=== PATIENT | male | born 1965 | race Caucasian/White ===

== ENCOUNTER 2019-02-04 19:52 | Emergency (ER) | payer OTHER ==
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
[2019-02-04] MEDS ORDERED: IBUPROFEN 600 MG TABLET PO ONE (21:40)
--- NOTE | 2019-02-04 21:56 | RADIOLOGY REPORT (SQ) ---
US LOWER EXTREMITY VEINS EXAM DATE: 02/04/2019 8:33 PM [employer] HISTORY: Leg pain and swelling. COMPARISON: None. TECHNIQUE: Grayscale, color Doppler, and spectral Doppler images of the right lower extremity were performed. FINDINGS: The common femoral, superficial femoral and popliteal veins are patent and compressible. Normal augmentation and color Doppler blood flow in the aforementioned veins. The visualized calf veins are also patent. IMPRESSION: No evidence of deep venous thrombosis in the right lower extremity.
--- NOTE | 2019-02-04 22:19 | RADIOLOGY REPORT (SQ) ---
EXAM DESCRIPTION: XR FEMUR 2 VIEWS COMPLETED DATE/TME: 02/04/2019 21:39 CLINICAL HISTORY: 53 years, Male, injury COMPARISON: None. NUMBER OF VIEWS: Four views were obtained TECHNIQUE: Frontal and oblique radiographs were acquired LIMITATIONS: None. FINDINGS: Visualized osseous structures are normal in appearance. Joint spaces are well-maintained. No acute fracture or dislocation is evident. IMPRESSION: No definite acute osseous anomaly. copyright 2010 [employer]- All Rights Reserved
[2019-02-04 23:12] VITALS: BP 144/87
== END 2019-02-04 23:10 | disposition home or self-care (01) ==
LOC: ER 19:52
DX: S70.11XA Contusion of right thigh, initial encounter (principal); W50.0XXA Accidental hit or strike by another person, initial encounter; E11.9 Type 2 diabetes mellitus without complications; I10 Essential (primary) hypertension; Z88.0 Allergy status to penicillin; Z87.891 Personal history of nicotine dependence; M79.89 Other specified soft tissue disorders
CPT/HCPCS: 93971; 99284

== ENCOUNTER 2019-05-31 14:09 | Emergency (ER) | payer OTHER ==
[2019-05-31] MEDS ORDERED: NORMAL SALINE 1000 ML 1,000 ML IV PRN (14:21)
--- NOTE | 2019-05-31 14:23 | ER Document Report ---
ED Medical Screen (RME) - General Chief Complaint: Shortness Of Breath Stated Complaint: SHORTNESS OF BREATH Time Seen by Provider: 05/31/19 14:14 Primary Care Provider: MIRACLE BAIRES MD [Primary Care Provider] - Follow up as needed Information source: Patient TRAVEL OUTSIDE OF THE [place] IN LAST 30 DAYS: No - HPI Onset: Other - This is a 53-year-old male who presented to the emergency room today stating he has had cough congestion left-sided chest pain intermittently over the course of a week the chest pains got worse over the last 24 hours and now he is getting dizzy as he ambulates and when he coughs. - Related Data Allergies/Adverse Reactions: Penicillins Allergy (Verified 02/04/19 20:27) Past Medical History - Past Medical History Cardiac Medical History: Reports: Hx Heart Attack, Hx Hypercholesterolemia, Hx Hypertension Past Surgical History: Reports: Hx Appendectomy - Immunizations Hx Diphtheria, Pertussis, Tetanus Vaccination: No Physical Exam - Cardiovascular Rhythm: Regular Heart sounds: Normal auscultation Murmur: No Doctor's Discharge - Discharge Referrals: MIRACLE BAIRES MD [Primary Care Provider] - Follow up as needed
[2019-05-31 15:28] LABS: ABSOLUTE LYMPHOCYTES (AUTO) 1.4 10^3/uL (0.5-4.7); ABSOLUTE MONOCYTES (AUTO) 1.1 10^3/uL (0.1-1.4); ABSOLUTE NEUT (AUTO) 10.6 10^3/uL (1.7-8.2); BASOPHILS % (AUTO) 0.3 % (0-2); EOSINOPHILS % (AUTO) 0.2 % (0-6); HEMATOCRIT 39.4 % (37.9-51.0); HEMOGLOBIN 13.8 g/dL (13.5-17.0); LYMPHOCYTES % (AUTO) 10.3 % (13-45); MEAN CORPUSCULAR HEMOGLOBIN 30.6 pg (27.0-33.4); MEAN CORPUSCULAR VOLUME 88 fl (80-97); MONOCYTES % (AUTO) 8.6 % (3-13); PLATELET COUNT 259 10^3/uL (150-450); RED CELL DISTRIBUTION WIDTH 12.6 % (11.5-14.0); SEGMENTED NEUTROPHILS % (AUTO) 80.6 % (42-78); TOTAL CELLS COUNTED % (AUTO) 100 %; WHITE BLOOD COUNT 13.2 10^3/uL (4.0-10.5)
[2019-05-31 15:35] LABS: ALBUMIN 4.2 g/dL (3.5-5.0); ALKALINE PHOSPHATASE 80 U/L (38-126); ANION GAP 9 (5-19); ASPARTATE AMINO TRANSFERASE 26 U/L (17-59); BILIRUBIN,DIRECT 0.2 mg/dL (0.0-0.4); BILIRUBIN,TOTAL 1.7 mg/dL (0.2-1.3); BLOOD UREA NITROGEN 19 mg/dL (7-20); CALCIUM 9.3 mg/dL (8.4-10.2); CARBON DIOXIDE 26 mmol/L (22-30); CHLORIDE 100 mmol/L (98-107); GLUCOSE 212 mg/dL (75-110); POTASSIUM 4.4 mmol/L (3.6-5.0); TOTAL PROTEIN 7.4 g/dL (6.3-8.2)
[2019-05-31 15:56] LABS: CREATINE KINASE MB 0.78 ng/mL (<4.55); TROPONIN I < 0.012 ng/mL
[2019-05-31 16:18] LABS: APPEARANCE,URINE CLEAR; BILIRUBIN,URINE NEGATIVE (NEGATIVE); COLOR,URINE YELLOW; GLUCOSE, URINE 150 mg/dL (NEGATIVE); KETONES,URINE NEGATIVE (NEGATIVE); LEUKOCYTE ESTERASE,URINE NEGATIVE (NEGATIVE); NITRITE,URINE NEGATIVE (NEGATIVE); PROTEIN,URINE NEGATIVE (NEGATIVE); URINE SPECIFIC GRAVITY 1.027; UROBILINOGEN,URINE NEGATIVE mg/dL (<2.0)
[2019-05-31] MEDS ORDERED: METHYLPREDNISOLONE INJ 125 MG/2 ML SDV IV ONE (16:41)
[2019-05-31] MEDS ORDERED: IPRATROPIUM/ALBUTEROL 0.5-2.5 MG/3 ML AMPUL NEB ONE (16:41)
--- NOTE | 2019-05-31 16:52 | ER Document Report ---
ED General - General Chief Complaint: Chest Pain Stated Complaint: SHORTNESS OF BREATH Time Seen by Provider: 05/31/19 14:14 Primary Care Provider: MIRACLE BAIRES MD [NO LOCAL MD] - Follow up as needed Mode of Arrival: Ambulatory Information source: Patient, Relative Notes: Patient is a 53-year-old male presenting to the emergency department chief complaint of shortness of breath and cough as well as congestion. Patient states it is all been for about the past week. He says it is worse the past couple of days. Patient also reports intermittent left-sided chest pain. Patient denies any tobacco abuse no travel history no obvious sick contacts. Patient denies nausea vomiting diarrhea. He states he has had a mild subjective fever at time of presentation to the ER patient had a fever of 99.5. TRAVEL OUTSIDE OF THE [place] IN LAST 30 DAYS: No - Related Data Allergies/Adverse Reactions: Penicillins Allergy (Verified 05/31/19 14:23) Past Medical History - General Information source: Patient - Social History Smoking Status: Never Smoker Chew tobacco use (# tins/day): No Frequency of alcohol use: None Drug Abuse: None Lives with: Spouse/Significant other Family History: Reviewed & Not Pertinent Patient has suicidal ideation: No Patient has homicidal ideation: No - Past Medical History Cardiac Medical History: Reports: Hx Heart Attack, Hx Hypercholesterolemia, Hx Hypertension Past Surgical History: Reports: Hx Appendectomy - Immunizations Hx Diphtheria, Pertussis, Tetanus Vaccination: No Review of Systems - Review of Systems Notes: REVIEW OF SYSTEMS: CONSTITUTIONAL : Denies fever, chills, or sweats. Denies recent illness. EENT: Denies eye, ear, throat, or mouth pain or symptoms. Denies nasal or sinus congestion. CARDIOVASCULAR: Per HPI RESPIRATORY: Per HPI GASTROINTESTINAL: Denies abdominal pain. Denies nausea, vomiting, or diarrhea. Denies constipation. GENITOURINARY: Denies difficulty urinating, painful urination, burning, frequency, or blood in urine. MUSCULOSKELETAL: Denies neck or back pain or joint pain or swelling. SKIN: Denies rash or skin lesions. HEMATOLOGIC : Denies easy bruising or bleeding. NEUROLOGICAL: Denies altered mental status or loss of consciousness. Denies headache. Denies weakness or paralysis or loss of use of either side. Denies problems with gait or speech. Denies sensory or motor loss. PSYCHIATRIC: Denies suicidal or homicidal ideations 10 Systems are negative unless otherwise specified above Physical Exam - Vital signs Vitals: Temp Pulse Resp BP Pulse Ox 99.7 F 102 H 19 154/92 H 96 05/31/19 14:21 05/31/19 14:21 05/31/19 14:21 05/31/19 14:21 05/31/19 14:21 - Notes Notes: PHYSICAL EXAMINATION: GENERAL: Well-appearing, well-nourished and in no acute distress. HEAD: Atraumatic, normocephalic. EYES: Pupils equal round and reactive to light, extraocular movements intact, sclera anicteric, conjunctiva are normal. ENT: nares patent, oropharynx clear without erythema or exudates to the tonsillar regions. Moist mucous membranes. NECK: Normal range of motion, supple without lymphadenopathy, no appreciable JVD LUNGS: Lungs have scattered rales but deep inspiration does elicit a cough response. HEART: Regular rate and rhythm without murmurs ABDOMEN: Soft, nontender, normal bowel sounds. No guarding, no rebound. No masses appreciated. EXTREMITIES: Active full range of motion, no pitting or edema. No cyanosis. 2+ pulses x4 NEUROLOGICAL: No focal neurological deficits. Moves all extremities spontaneously and on command. SKIN: Warm, Dry, and intact. Normal turgor, no rashes or lesions noted. Course - Re-evaluation Re-evalutation: 05/31/19 16:51 Lab work EKG chest x-ray have been ordered. Patient will be given DuoNeb breathing treatment Solu-Medrol 125 mg IV and will be reassessed. 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 The patient has remained stable. I do not believe that the chest pain is secondary to a cardiac event the patient has had 2 completely negative troponins however the patient has been found to have infiltrate and pleural effusion on the left side. Patient is given initial dose of Levaquin in the emergency department given a albuterol MDI inhaler for at home and will be prescribed Levaquin for the next 7 days and recommend to follow-up with family physician or return to the emergency department for worsening symptoms. Patient is agreeable with care plan and discharged home in stable condition. - Vital Signs Vital signs: Temp Pulse Resp BP Pulse Ox 99.7 F 102 H 20 130/91 H 93 05/31/19 14:21 05/31/19 14:21 05/31/19 17:31 05/31/19 17:31 05/31/19 17:31 - Laboratory Result Diagrams: 05/31/19 14:32 05/31/19 14:32 Laboratory results interpreted by me: 05/31/19 05/31/19 05/31/19 14:32 14:32 14:32 WBC 13.2 H Lymph % (Auto) 10.3 L Absolute Neuts (auto) 10.6 H Seg Neutrophils % 80.6 H Sodium 135.3 L Glucose 212 H Total Bilirubin 1.7 H Urine Glucose (UA) 150 H - Diagnostic Test Radiology reviewed: Reports reviewed - EKG Interpretation by Me Additional EKG results interpreted by me: 05/31/19 16:52 EKG demonstrates sinus rhythm 99 bpm there is no ST elevation no axis deviation no ectopy and no old EKG for comparison. Discharge - Discharge Clinical Impression: Cough, Pleural effusion Pneumonia Qualifiers: Pneumonia type: due to unspecified organism Laterality: unspecified laterality Lung location: lower lobe of lung Qualified Code(s): J18.9 - Pneumonia, unspecified organism Condition: Stable Disposition: HOME, SELF-CARE Instructions: Chest Pain of Unclear Cause ([facility]) Additional Instructions: PNEUMONIA: Your examination indicates that you have pneumonia. This is an infection of the lung tissue, usually caused by bacteria or a virus. Symptoms include cough, fever, shaking chills, chest pain, shortness of breath, and coughing up bloody sputum. Treatment for bacterial pneumonia includes rest, antibiotics for 10 to 14 days, increasing your clear liquid intake, a cool mist humidifier at your be dside, and fever medication. Often, a repeat chest X-ray is performed in a few weeks--even if you feel better--to ascertain whether the infection has completely resolved and no underlying lung problem is present. You should call the physician if you develop persistent vomiting, high fever that does not respond to fever medication, increasing shortness of breath, confusion, or lethargy. Also, failure to improve within two to three days is an indication for re-examination. ANTIBIOTIC INJECTION: You have been given an antibiotic injection. Sometimes the injection must be combined with antibiotic pills. For some infections, the shot provides all the antibiotic that's needed. Common side effects of antibiotics include nausea, intestinal cramping, or diarrhea. These are very unusual following a shot. Women may develop vaginal yeast infections, and babies can get yeast (thrush) in the mouth following the use of antibiotics. Contact your physician if you develop significant side effects from this medication. Allergy to this antibiotic can result in hives, wheezing, faintness, or itching. If symptoms of allergy occur, call the doctor at once. ANTIBIOTIC THERAPY: You have been given an antibiotic prescription. It's important that you take all the medication, unless instructed otherwise by your physician. Failure to complete the entire course can result in relapse of your condition. Common side effects of antibiotics include nausea, intestinal cramping, or diarrhea. Women may develop vaginal yeast infections, and babies can get yeast (thrush) in the mouth following the use of antibiotics. Contact your physician if you develop significant side effects from this medication. Allergy to this antibiotic can result in hives, wheezing, faintness, or itching. If symptoms of allergy occur, stop the medication and call the doctor. LEVOFLOXACIN: You have been given an antibacterial agent, levofloxacin (Levaquin). This medicine is not related to the penicillins, sulfas, cephalosporins, or tetracyclines. It is often given to patients who are allergic to these drugs. It has been chosen for you either because other drugs are not appropriate, or because of the nature of your problem. Levaquin should not be taken with antacids, as these can decrease its effectiveness. It can be taken without regard to meals. LEVAQUIN SHOULD NOT BE TAKEN BY CHILDREN, NURSING WOMEN, OR WOMEN. Although Levaquin is usually well-tolerated, common side effects can include nausea and diarrhea. Contact your doctor if you experience any unusual symptoms while on this medication, such as joint pain or swelling, shortness of breath, wheezing, faintness, or hives. USE OF ACETAMINOPHEN (Tylenol): Acetaminophen may be taken for pain relief or fever control. It's much safer than aspirin, offering a wider range of "safe" dosages. It is safe during . Some brand names are Tylenol, Panadol, Datril, Anacin 3, Tempra, and Liquiprin. Acetaminophen can be repeated every four hours. The following are maximum recommended dosages: WEIGHT Dose Drops Elixir Chewable (80mg) (LBS.) drprs=droppers tsp=teaspoon 6 40 mg 0.4 ml (1/2) 6-11 80 mg 0.8 ml (full) tsp 1 tab 12-16 120 mg 1 1/2 drprs 3/4 tsp 1 1/2 tabs 17-23 160 mg 2 drprs 1 tsp 2 tabs 24-30 240 mg 3 drprs 1 1/2 tsp 3 tabs 30-35 320 mg 2 tsp 4 tabs 36-41 360 mg 2 1/4 tsp 4 1/2 tabs 42-47 400 mg 2 1/2 tsp 5 tabs 48-53 480 mg 3 tsp 6 tabs 54-59 520 mg 3 1/4 tsp 6 1/2 tabs 60-64 560 mg 3 1/2 tsp 7 tabs 65-70 600 mg 3 3/4 tsp 7 1/2 tabs 71-76 640 mg 4 tsp 8 tabs 77-82 720 mg 4 1/2 tsp 9 tabs 83-88 800 mg 5 tsp 10 tabs >89 pounds or adults 650 mg to 900 mg Acetaminophen can be repeated every four hours. Maximum dose not to exceed 4000 mg a day. These maximum recommended dosages are slightly higher than the dosages written on the product container, but these dosages are very safe and below the toxic dosage for acetaminophen. FOLLOW-UP CARE: If you have been referred to a physician for follow-up care, call the physicians office for an appointment as you were instructed or within the next two days. If you experience worsening or a significant change in your symptoms, notify the physician immediately or return to the Emergency Department at any time for re-evaluation. Prescriptions: Levofloxacin [Levaquin 750 mg Tablet] 750 mg PO DAILY #10 tablet Forms: Return to Work Referrals: MIRACLE BAIRES MD [NO LOCAL MD] - Follow up as needed
--- NOTE | 2019-05-31 17:37 | RADIOLOGY REPORT (SQ) ---
EXAM DESCRIPTION: CHEST SINGLE VIEW COMPLETED DATE/TIME: 05/31/2019 5:15 pm REASON FOR STUDY: sob COMPARISON: Chest radiographs 08/13/2013 EXAM PARAMETERS: NUMBER OF VIEWS: One view. TECHNIQUE: Single frontal radiographic view of the chest acquired. RADIATION DOSE: NA LIMITATIONS: None. FINDINGS: LUNGS AND PLEURA: Patchy left lower lobe airspace opacities. Mild blunting of the left co stophrenic angle. No pneumothorax. MEDIASTINUM AND HILAR STRUCTURES: No masses. Contour normal. HEART AND VASCULAR STRUCTURES: Heart normal in size. Normal vasculature. BONES: No acute findings. HARDWARE: None in the chest. OTHER: No other significant finding. IMPRESSION: Patchy left basilar airspace opacities, which may represent pneumonia in the appropriate clinical setting. Possible small left pleural effusion. TECHNICAL DOCUMENTATION: JOB ID: [id number] 2010 [employer]- All Rights Reserved Reading location - IP/workstation name: [email or web address]
[2019-05-31 17:44] LABS: A TYPE INFLUENZA AG NEGATIVE (NEGATIVE); B INFLUENZA AG NEGATIVE (NEGATIVE)
[2019-05-31] MEDS ORDERED: LEVOFLOXACIN 500 MG/D5W RTU 500 MG/100 ML RTUPB IV ONE (18:23)
[2019-05-31] MEDS ORDERED: ALBUTEROL SULFATE HFA (90 MCG/PUFF) 8 GM MDI (1 MDI/ER DISP) IH PRN (19:08)
[2019-05-31 19:33] VITALS: BP 121/82
--- NOTE | 2019-06-02 00:23 | EKG REPORT ---
SEVERITY:- NORMAL ECG - SINUS RHYTHM : Confirmed by: Sheila Potter 02-Jun-2019 00:21:29
--- NOTE | 2019-06-03 14:30 | EKG REPORT ---
SEVERITY:- BORDERLINE ECG - SINUS RHYTHM PROBABLE LEFT ATRIAL ABNORMALITY : Confirmed by: Acacia Morales MD 03-Jun-2019 14:30:35
== END 2019-05-31 19:54 | disposition home or self-care (01) ==
LOC: ER 14:09
DX: J18.9 Pneumonia, unspecified organism (principal); J90 Pleural effusion, not elsewhere classified; R06.02 Shortness of breath; R05 Cough; R07.9 Chest pain, unspecified; I10 Essential (primary) hypertension; I25.2 Old myocardial infarction; Z88.0 Allergy status to penicillin
CPT/HCPCS: 93005; 94640; 99285; 96361; 96375; 96365; 36415; 87040; 82553; 82550; 83690; 85025; 80053; 81001; 84484; 87804; 71045; 93010; J1956; J2930; J7030; J3490; J7620

== ENCOUNTER 2019-06-02 21:46 | Inpatient (IN) | payer OTHER ==
--- NOTE | 2019-06-02 23:07 | ER Document Report ---
ED Medical Screen (RME) - General Chief Complaint: Chest Pain Stated Complaint: CHEST PAINS,SHORTNESS OF BREATH Primary Care Provider: [facility] [Primary Care Provider] - Follow up as needed Notes: Patient is a 53-year-old white male who was seen here recently diagnosed with pneumonia who was started on Levaquin who returns today with a chief complaint of no improvement. States that he feels like despite the antibiotics given here in the ones taking at home he is not getting any better. He complains of pain in the left chest wall and an ongoing shortness of breath. He states that he also has a new symptom of inability to rest. States that he cannot sleep at night he lies in bed wide awake. He states he does not feel jittery but cannot get any rest. He is unsure if this is a side effect of the medications. He was supposed to follow-up with his doctor but states he cannot get in to see him until this coming Sunday. He denies any ongoing fevers or chills. I have treated and performed a rapid initial assessment of this patient. A comprehensive ED assessment and evaluation of the patient, analysis of test results and completion of medical decision making process will be conducted by additional ED providers. PHYSICAL EXAMINATION: GENERAL: Well-appearing, well-nourished and in no acute distress. A&Ox4. Answers questions appropriately. TRAVEL OUTSIDE OF THE [place] IN LAST 30 DAYS: No - Related Data Allergies/Adverse Reactions: Penicillins Allergy (Verified 06/02/19 23:04) Past Medical History - Past Medical History Cardiac Medical History: Reports: Hx Heart Attack, Hx Hypercholesterolemia, Hx Hypertension Past Surgical History: Reports: Hx Appendectomy - Immunizations Hx Diphtheria, Pertussis, Tetanus Vaccination: No Physical Exam - Vital signs Vitals: Temp Pulse Resp BP Pulse Ox 99.1 F 81 20 147/95 H 96 06/02/19 22:28 06/02/19 22:28 06/02/19 22:28 06/02/19 22:28 06/02/19 22:28 Course - Vital Signs Vital signs: Temp Pulse Resp BP Pulse Ox 99.1 F 81 20 147/95 H 96 06/02/19 22:28 06/02/19 22:28 06/02/19 22:28 06/02/19 22:28 06/02/19 22:28 Doctor's Discharge - Discharge [facility]errals: [facility] [Primary Care [facility]] - Follow up as needed
--- NOTE | 2019-06-02 23:34 | RADIOLOGY REPORT (SQ) ---
EXAM DESCRIPTION: XR CHEST 2 VIEWS COMPLETED DATE/TME: 06/02/2019 23:05 CLINICAL HISTORY: 53 years, Male, cp, cough, sob COMPARISON: Prior study from 05/31/2019 NUMBER OF VIEWS: 2 TECHNIQUE: Frontal and lateral radiographs of the chest were acquired LIMITATIONS: None. FINDINGS: Cardiac and mediastinal contours are stable. Visualized is a small left pleural effusion with associated left basilar opacity, unchanged from the prior. No pneumothorax. IMPRESSION: Small left pleural effusion with associated left basilar opacity. Consider atelectasis or pneumonia to include aspiration. Overall, this appears unchanged from the previous study dated 05/31/2019. copyright 2010 [employer]- All Rights Reserved
[2019-06-03 03:33] LABS: ABSOLUTE LYMPHOCYTES (AUTO) 1.3 10^3/uL (0.5-4.7); ABSOLUTE MONOCYTES (AUTO) 0.8 10^3/uL (0.1-1.4); ABSOLUTE NEUT (AUTO) 8.4 10^3/uL (1.7-8.2); BASOPHILS % (AUTO) 0.4 % (0-2); EOSINOPHILS % (AUTO) 0.4 % (0-6); HEMATOCRIT 39.5 % (37.9-51.0); HEMOGLOBIN 13.9 g/dL (13.5-17.0); LYMPHOCYTES % (AUTO) 12.1 % (13-45); MEAN CORPUSCULAR HEMOGLOBIN 30.8 pg (27.0-33.4); MEAN CORPUSCULAR HGB CONC 35.2 g/dL (32.0-36.0); MEAN CORPUSCULAR VOLUME 87 fl (80-97); PLATELET COUNT 284 10^3/uL (150-450); RED BLOOD COUNT 4.52 10^6/uL (4.35-5.55); RED CELL DISTRIBUTION WIDTH 12.4 % (11.5-14.0); SEGMENTED NEUTROPHILS % (AUTO) 79.1 % (42-78); TOTAL CELLS COUNTED % (AUTO) 100 %; WHITE BLOOD COUNT 10.6 10^3/uL (4.0-10.5)
--- NOTE | 2019-06-03 03:45 | ER Document Report ---
ED General - General Information source: Patient TRAVEL OUTSIDE OF THE [place] IN LAST 30 DAYS: No - HPI Onset: Other - over the last several days Onset/Duration: Gradual Quality of pain: Sharp - made worse with deep breaths Severity: Moderate Pain Level: 4 Associated symptoms: Chest pain, Nonproductive cough, Fever, Shortness of breath Exacerbated by: Coughing, Deep breathing, Other - exertion Relieved by: Remaining still Similar symptoms previously: No Recently seen / treated by doctor: Yes - patient was seen in this ER on 05/31/19 and diagnosed with pneumonia <PHILOMENA SHIPLEY - Last Filed: 06/03/19 06:05> <TARIK SCRUGGS - Last Filed: 06/03/19 11:54> - General Chief Complaint: Breathing Difficulty Stated Complaint: CHEST PAINS,SHORTNESS OF BREATH Time Seen by Provider: 06/03/19 03:23 [facility] Provider: [facility] [[facility]] - Follow up as needed - HPI Notes: 53 year old male with a history of HTN, HLD, and DM here for left sided chest pain, cough, low grade fevers, and shortness of breath. The patient was seen in this ER on 05/31/19 and diagnosed with a left sided pneumonia and a small left sided effusion. The patient was given a dose of Levaquin in the ER and he has taken 2 more doses of Levaquin at home without much improvement. The patient denies any recent travel or recent sick contacts. The patient has not had any recent surgeries, prolonged immobilizations, or long car/plane rides. (PHILOMENA SHIPLEY) - Related Data Allergies/Adverse Reactions: Penicillins Allergy (Verified 06/02/19 23:04) Past Medical History - General Information source: Patient - Social History Smoking Status: Never Smoker Frequency of alcohol use: None Drug Abuse: None Lives with: Spouse/Significant other Family History: Reviewed & Not Pertinent Patient has suicidal ideation: No Patient has homicidal ideation: No - Past Medical History Cardiac Medical History: Reports: Hx Heart Attack, Hx Hypercholesterolemia, Hx Hypertension Endocrine Medical History: Reports: Hx Diabetes Mellitus Type 2 Past Surgical History: Reports: Hx Appendectomy - Immunizations Hx Diphtheria, Pertussis, Tetanus Vaccination: No <PHILOMENA SHIPLEY - Last Filed: 06/03/19 06:05> Review of Systems - Review of Systems Constitutional: Fever EENT: No symptoms reported Cardiovascular: Chest pain Respiratory: Cough, Short of breath Gastrointestinal: No symptoms reported Genitourinary: No symptoms reported Male Genitourinary: No symptoms reported Musculoskeletal: No symptoms reported Skin: No symptoms reported Hematologic/Lymphatic: No symptoms reported Neurological/Psychological: No symptoms reported -: Yes All other systems reviewed and negative <PHILOMENA SHIPLEY - Last Filed: 06/03/19 06:05> Physical Exam <PHILOMENA SHIPLEY - Last Filed: 06/03/19 06:05> - Vital signs Vitals: Temp Pulse Resp BP Pulse Ox 99.1 F 81 20 147/95 H 96 06/02/19 22:28 06/02/19 22:28 06/02/19 22:28 06/02/19 22:28 06/02/19 22:28 - Notes Notes: GENERAL: Well-appearing, well-nourished and in no acute distress. HEAD: Atraumatic, normocephalic. EYES: Pupils equal round and reactive to light, extraocular movements intact, sclera anicteric, conjunctiva are normal. ENT: Nares patent, oropharynx clear without exudates. Moist mucous membranes. NECK: Normal range of motion, supple without lymphadenopathy or JVD. LUNGS: Breath sounds clear to auscultation bilaterally and equal. No wheezes rales or rhonchi. Patient has left sided pleuritic chest pain. HEART: Regular rate and rhythm without murmurs, rubs or gallops. ABDOMEN: Soft, nontender, normoactive bowel sounds. No guarding, no rebound. No masses appreciated. EXTREMITIES: Normal range of motion, no pitting or edema. No clubbing or cyanosis. NEUROLOGICAL: Cranial nerves II through XII grossly intact. Normal speech, normal gait. PSYCH: Normal mood, normal affect. SKIN: Warm, Dry, normal turgor, no rashes or lesions noted. (PHILOMENA SHIPLEY) Course - Laboratory Result Diagrams: 06/03/19 03:14 06/03/19 03:14 - Diagnostic Test Radiology reviewed: Image reviewed, Reports reviewed - EKG Interpretation by [facility] EKG shows normal: Sinus rhythm, [place], Intervals, QRS Complexes Rate: Normal Rhythm: NSR When compared to previous EKG there are: No significant change <PHILOMENA SHIPLEY - Last Filed: 06/03/19 06:05> - Laboratory Result Diagrams: 06/03/19 03:14 06/03/19 03:14 <TARIK SCRUGGS - Last Filed: 06/03/19 11:54> - Re-evaluation Re-evalutation: 06/03/19 04:01 The patient has what looks like a persistent left lower lobe infiltrate(s) and an effusion despite having taken 3 doses of Levaquin at this point. Will obtain influenza testing and a CTA Chest to ensure no other cause of symptoms. 06/03/19 04:52 The patient tested negative for Influenza. CTA Chest still pending. 06/03/19 06:05 CTA shows likely continued left sided pneumonia and possible necrotizing pneumonia. Will consult Pulmonary but admission for broad spectrum antibiotics seems likely. Patient is not septic and has normal vital signs. Patient signed out to Dr. Scruggs since since Pulmonary had not called back prior to shift change. ([facility]) - Vital Signs Vital signs: Temp Pulse Resp BP Pulse Ox 98.8 F 81 21 H 153/99 H 95 06/03/19 06:00 06/02/19 22:28 06/03/19 11:01 06/03/19 11:00 06/03/19 11:01 - Laboratory Laboratory results interpreted by me: 06/03/19 06/03/19 03:14 03:14 WBC 10.6 H Lymph % (Auto) 12.1 L Absolute Neuts (auto) 8.4 H Seg Neutrophils % 79.1 H Sodium 135.3 L Glucose 203 H Total Bilirubin 1.5 H Discharge <[facility] - Last Filed: 06/03/19 06:05> - Discharge Admitting Provider: Chris (Hospitalist) Unit Admitted: Medical Floor <TARIK SCRUGGS - Last Filed: 06/03/19 11:54> - Discharge Clinical Impression: Pneumonia Qualifiers: Pneumonia type: due to unspecified organism Laterality: unspecified laterality Lung location: unspecified part of lung Qualified Code(s): J18.9 - Pneumonia, unspecified organism Condition: Stable Disposition: ADMITTED INPATIENT [facility]errals: [facility] [Primary Care [facility]] - Follow up as needed
[2019-06-03 03:51] LABS: ALBUMIN 4.2 g/dL (3.5-5.0); ALKALINE PHOSPHATASE 74 U/L (38-126); ANION GAP 12 (5-19); ASPARTATE AMINO TRANSFERASE 24 U/L (17-59); BILIRUBIN,TOTAL 1.5 mg/dL (0.2-1.3); BLOOD UREA NITROGEN 17 mg/dL (7-20); CALCIUM 9.2 mg/dL (8.4-10.2); CARBON DIOXIDE 23 mmol/L (22-30); CHLORIDE 100 mmol/L (98-107); GLUCOSE 203 mg/dL (75-110); POTASSIUM 4.5 mmol/L (3.6-5.0); TOTAL PROTEIN 7.7 g/dL (6.3-8.2)
[2019-06-03] MEDS ORDERED: ACETAMINOPHEN 325 MG TABLET PO ONE (03:52)
[2019-06-03] MEDS ORDERED: NORMAL SALINE 1000 ML 1,000 ML IV ONE (04:03)
[2019-06-03 04:28] LABS: A TYPE INFLUENZA AG NEGATIVE (NEGATIVE); B INFLUENZA AG NEGATIVE (NEGATIVE)
--- NOTE | 2019-06-03 05:27 | RADIOLOGY REPORT (SQ) ---
EXAM DESCRIPTION: CT CHEST ANGIOGRAPHY WITHOUT THEN WITH IV CONTRAST COMPLETED DATE/TME: 06/03/2019 03:25 CLINICAL HISTORY: C/O SOB. DX'D WITH PNEUMONIA THIS PAST WEEKEND. CREAT 0.64 COMPARISON: None Available. TECHNIQUE: CTA of the chest obtained following the uncomplicated intravenous administration of 100 mL Omnipaque 350. 3-D/MIP reformatted images of the chest available for evaluation. FINDINGS: Chest: Pulmonary arteries: Contrast bolus is suboptimal. No filling defects main, left, right, or lobar pulmonary arteries. Suboptimal evaluation of the segmental and subsegmental pulmonary arterial branches due to respiratory motion artifact. Thyroid:No abnormalities of the visualized thyroid. Great Vessels:Great vessels have normal anatomic configuration. Thoracic Aorta: Atherosclerotic calcification of the thoracic aorta. Bowel Heart: Coronary artery atherosclerosis. No significant pericardial effusion or cardiomegaly. Lymph Nodes: Mildly prominent lymph nodes may be reactive. Esophagus:No abnormalities of the esophagus identified. Other:No additional findings. Lungs: Lingular airspace consolidation with focal region of hypodensity anteriorly measuring 3.5 x 2.1 cm containing small foci of air. Linear left basilar opacities. Minimal right basilar dependent atelectasis. Pleura: Small left pleural effusion. No pneumothorax. Trachea/Airways: No acute abnormalities of the trachea. Bones: Mild degenerative endplate spondylosis. Upper Abdomen:Limited images of the upper abdomen demonstrate no definite abnormalities of visualized portions of the gallbladder, pancreas, spleen, adrenal glands, or kidneys. Diffusely decreased hepatic density. IMPRESSION: 1. No central pulmonary embolus identified. Suboptimal evaluation of the segmental and subsegmental pulmonary arterial branches due to contrast bolus timing. 2. Lingular consolidation compatible with pneumonia. Focal area of hypodensity anteriorly measuring 3.5 cm in greatest axial dimension may represent an area of necrotizing pneumonia versus early abscess formation. 3. Small left pleural effusion. 4. Linear opacity in the left lower lobe may represent atelectasis or extension of lingular pneumonia. 5. Hepatic steatosis. 6. Coronary artery atherosclerosis. This exam was performed according to our departmental dose-optimization program, which includes automated exposure control, adjustment of the mA and/or kV according to patient size and/or use of iterative reconstruction technique.
[2019-06-03] MEDS ORDERED: KETOROLAC TROMETHAMINE INJ/PF 30 MG/1 ML SDV IV ONE (06:12)
--- NOTE | 2019-06-03 12:15 | PDOC CONSULTATION ---
Consultation Consult Date: 06/03/19 Attending physician:: KARLEY MCCOLLUM Provider Consulted: WASHINGTON STONE Consult reason:: Pneumonia History of Present Illness [facility] History of Present Illness: MALACHI CABELLO is a 53 year old male second presentation to the emergency room in the last 72 hours initially he complained of a cough that was nonproductive and radiographs were likewise nondiagnostic he subsequently received Levaquin because his white count was 14. However he continued to feel weak and was coughing and returned and that a CTA which demonstrated a pleural placed consolidation with a small amount of pleural effusion and volume loss. He is a little cough as initially it was productive of some yellowish phlegm he denies any hemoptysis PPD status was negative the dates unknown no history of chronic lung disease as a child or adolescent he denies exposure to passive smoke as a child but he has been exposed his adult life he served in the [employer]. 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 1 dog no recent travel no known sick contacts recently. He denies angina-like chest pain sleeps on 1-3 pillows no PND no nocturnal cough no edema he admits to snoring restless sleep nocturia 2-3 times per night unrestful sleep and excessive daytime somnolence. Is also interesting to note that his reports witnessed apneas. Past Medical History Cardiac Medical History: Reports: Myocardial Infarction, Hyperlipidema, Hypertension EENT Medical History: Reports: None Neurological Medical History: Reports: Migraine Denies: Multiple Sclerosis Endocrine Medical History: Reports: Diabetes Mellitus Type 2 Malignancy Medical History: Reports: None GI Medical History: Denies: Crohn's Disease, Ulcerative Colitis Skin Medical History: Denies: Psoriasis Traumatic Medical History: Denies: Gunshot Wound, Pneumothorax, Traumatic Brain Injury Hematology: Denies: Sickle Cell Disease Infectious Medical History: Denies: HIV Past Surgical History Past Surgical History: Reports: Appendectomy Social History Information Source: Patient, Relative 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 Lives with: Spouse/Significant other Smoking Status: Never Smoker Passive smoke exposure as: Adult Frequency of Alcohol Use: None Hx Recreational Drug Use: No Drugs: None Hx Prescription Drug Abuse: No Do you have pets?: Yes Have you had any respiratory illnesses as a child?: No Have you been exposed to any sick contacts recently?: No Have you had any recent respiratory illnesses?: Yes Have you travelled outside of [place] in the past 12 months?: No Family History Family History: CAD, CVA, DM, Hypertension, Malignancy Parental Family History Reviewed: Yes Children Family History Reviewed: Yes Sibling(s) Family History Reviewed.: Yes Medication/Allergy Home Medications: Ondansetron [Zofran Odt 4 mg Tablet] 1 - 2 tab PO Q4H PRN #15 tab.rapdis 08/13/13 Levofloxacin [Levaquin 750 mg Tablet] 750 mg PO DAILY #10 tablet 05/31/19 Allergies/Adverse Reactions: Penicillins Allergy (Verified 06/02/19 23:04) Review of Systems All systems: reviewed and no additional remarkable complaints except as stated Physical Exam Vital Signs: Temp Pulse Resp BP Pulse Ox 98.8 F 81 21 H 153/99 H 95 06/03/19 06:00 06/02/19 22:28 06/03/19 11:01 06/03/19 11:00 06/03/19 11:01 Intake & Output 06/02/19 06/03/19 06/04/19 06:59 06:59 06:59 Intake Total 1000 Balance 1000 Weight 104.1 kg General appearance: PRESENT: no acute distress, cooperative, disheveled, obese, well-developed, well-nourished Head exam: PRESENT: atraumatic, normocephalic Eye exam: PRESENT: conjunctiva pale, EOMI. ABSENT: nystagmus, periorbital swelling, scleral icterus Mouth exam: PRESENT: dry mucosa, neck supple, tongue midline Neck exam: ABSENT: carotid bruit, JVD, lymphadenopathy, thyromegaly, tracheal deviation, tracheostomy Cardiovascular exam: PRESENT: RRR, +S1, +S2, tachycardia Pulses: PRESENT: normal radial pulses GI/Abdominal exam: PRESENT: soft. ABSENT: distended, guarding, rebound, tenderness Extremities exam: ABSENT: clubbing, joint swelling, pedal edema, tenderness Musculoskeletal exam: PRESENT: ambulatory, normal inspection. ABSENT: deformity, dislocation Neurological exam: PRESENT: alert, awake Psychiatric exam: PRESENT: appropriate affect Skin exam: PRESENT: dry, warm Results Laboratory Results: 06/03/19 03:14 06/03/19 03:14 06/03/19 06/03/19 03:14 03:14 WBC 10.6 H RBC 4.52 Hgb 13.9 Hct 39.5 MCV 87 MCH 30.8 MCHC 35.2 RDW 12.4 Plt Count 284 Seg Neutrophils % 79.1 H Sodium 135.3 L Potassium 4.5 Chloride 100 Carbon Dioxide 23 Anion Gap 12 BUN 17 Creatinine 0.64 Est GFR ( Amer) > 60 Glucose 203 H Calcium 9.2 Total Bilirubin 1.5 H AST 24 Alkaline Phosphatase 74 Total Protein 7.7 Albumin 4.2 06/03/19 06/03/19 03:14 03:14 Troponin I < 0.012 NT-Pro-B Natriuret Pep 100 Impressions: Chest X-Ray 06/02/19 23:05 IMPRESSION: Small left pleural effusion with associated left basilar opacity. Consider atelectasis or pneumonia to include aspiration. Overall, this appears unchanged from the previous study dated 05/31/2019. copyright 2010 [employer]- All Rights Reserved Chest/Abdomen CTA 06/03/19 03:25 IMPRESSION: 1. No central pulmonary embolus identified. Suboptimal evaluation of the segmental and subsegmental pulmonary arterial branches due to contrast bolus timing. 2. Lingular consolidation compatible with pneumonia. Focal area of hypodensity anteriorly measuring 3.5 cm in greatest axial dimension may represent an area of necrotizing pneumonia versus early abscess formation. 3. Small left pleural effusion. 4. Linear opacity in the left lower lobe may represent atelectasis or extension of lingular pneumonia. 5. Hepatic steatosis. 6. Coronary artery atherosclerosis. This exam was performed according to our departmental dose-optimization program, which includes automated exposure control, adjustment of the mA and/or kV according to patient size and/or use of iterative reconstruction technique. Assessment & Plan - Diagnosis (1) Pneumonia Qualifiers: Pneumonia type: due to unspecified organism Laterality: unspecified laterality Lung location: unspecified part of lung Qualified Code(s): J18.9 - Pneumonia, unspecified organism Is this a current diagnosis for this admission?: Yes Plan: foul smelling breath consider cleocin to cover anerobes; vancomycin and continue levoquin suggest chest percussion and postural drainage Izaiah lat and post chest weems;sputum stain and C&S:acetylcystene for mucolytic 1 hr prior to chest phisiotherapy non smoker NIDDM HTN (2) Pleural effusion Is this a current diagnosis for this admission?: Yes Plan: very small per radiology but any increase should be tapped if/when possible (3) Daytime somnolence Is this a current diagnosis for this admission?: Yes Plan: cpap +10 cm h2o in hospitial on discharge sleep study - Time Time Spent with patient: 65 min Time Spent: 50 to 70 Minutes
[2019-06-03] MEDS ORDERED: ACETAMINOPHEN 325 MG TABLET PO PRN (12:19)
[2019-06-03] MEDS ORDERED: GLUCAGON,HUMAN RECOMB 1 MG INJ IM PRN (12:35)
[2019-06-03] MEDS ORDERED: DEXTROSE 40% GEL 15 GM TUBE PO PRN ×2 (12:35)
[2019-06-03] MEDS ORDERED: DEXTROSE 50%-WATER 25 GM/50 ML DISP.SYRIN IV PRN ×2 (12:35)
[2019-06-03] MEDS ORDERED: VANCOMYCIN HCL INJ 1000 MG VIAL IV SCH (12:45)
--- NOTE | 2019-06-03 12:51 | PDOC H&P ---
History of Present Illness Admission Date/PCP: 06/03/19 12:15 [facility] Patient complains of: Chest pain or shortness of breath with cough History of Present Illness: MALACHI CABELLO is a 53 year old male with a history of type 2 diabetes mellitus, hypertension, arthritis of both shoulders, who presents to the hospital complaining of progressive shortness of breath and cough. Patient symptoms began about a week ago and began with chills, nonproductive cough. He began to develop left-sided pleuritic chest pain. He came to the ER and was given Levaquin on Sunday. He states that despite taking the antibiotics on Sunday and Sunday he has not noted any improvement in his cough and right progressive nature of the chest pain and shortness of breath and decided to come back to the ER. Patient denies any travels outside of [place] in the past 1 month. Also has not traveled outside the country anytime recently. Currently denies fever or chills at this time. Denies pain in any large gatherings of people. Only sick contact is somebody from work. Chest pain is only upon deep inhalation. Past Medical History Cardiac Medical History: Reports: Hypertension EENT Medical History: Reports: None Endocrine Medical History: Reports: Diabetes Mellitus Type 2 Malignancy Medical History: Reports: None GI Medical History: Denies: Crohn's Disease, Ulcerative Colitis Skin Medical History: Denies: Psoriasis Traumatic Medical History: Denies: Gunshot Wound, Pneumothorax, Traumatic Brain Injury Hematology: Denies: Sickle Cell Disease Infectious Medical History: Denies: HIV Past Surgical History Past Surgical History: Reports: Appendectomy Social History Lives with: Spouse/Significant other Smoking Status: Never Smoker Frequency of Alcohol Use: None Hx Recreational Drug Use: No Drugs: None Hx Prescription Drug Abuse: No - Advance Directive Resuscitation Status: Full Code Family History Family History: CAD, CVA, DM, Hypertension, Malignancy Parental Family History Reviewed: Yes Children Family History Reviewed: NA Sibling(s) Family History Reviewed.: NA Medication/Allergy Home Medications: Ondansetron [Zofran Odt 4 mg Tablet] 1 - 2 tab PO Q4H PRN #15 tab.rapdis 08/13/13 Levofloxacin [Levaquin 750 mg Tablet] 750 mg PO DAILY #10 tablet 05/31/19 Allergies/Adverse Reactions: Penicillins Allergy (Verified 06/02/19 23:04) Review of Systems Constitutional: PRESENT: chills. ABSENT: anorexia, fever(s) Eyes: ABSENT: visual disturbances Nose, Mouth, and Throat: ABSENT: headache(s), sore throat Cardiovascular: PRESENT: chest pain. ABSENT: orthropnea Respiratory: PRESENT: cough, dyspnea. ABSENT: sputum Gastrointestinal: ABSENT: abdominal pain, diarrhea, nausea, vomiting Genitourinary: ABSENT: dysuria Musculoskeletal: ABSENT: back pain Integumentary: ABSENT: diaphoresis Neurological: ABSENT: confusion, dizziness Hematologic/Lymphatic: ABSENT: easy bleeding Allergic/Immunologic: ABSENT: seasonal rhinorrhea Physical Exam Vital Signs: Temp Pulse Resp BP Pulse Ox 98.8 F 81 21 H 153/99 H 95 06/03/19 06:00 06/02/19 22:28 06/03/19 11:01 06/03/19 11:00 06/03/19 11:01 Intake & Output 06/02/19 06/03/19 06/04/19 06:59 06:59 06:59 Intake Total 1000 Balance 1000 Weight 104.1 kg General appearance: PRESENT: no acute distress, cooperative Head exam: PRESENT: normocephalic Eye exam: PRESENT: EOMI Mouth exam: PRESENT: neck supple Neck exam: ABSENT: JVD Respiratory exam: PRESENT: clear to auscultation jacobo, symmetrical, unlabored. ABSENT: tachypnea, wheezes Cardiovascular exam: PRESENT: RRR, +S1, +S2. ABSENT: tachycardia GI/Abdominal exam: PRESENT: soft. ABSENT: rebound, rigid, tenderness Extremities exam: ABSENT: pedal edema Musculoskeletal exam: PRESENT: ambulatory Neurological exam: PRESENT: alert, awake, oriented to person, oriented to place, oriented to time Psychiatric exam: ABSENT: agitated, anxious Focused psych exam: ABSENT: pressured speech Results Laboratory Results: 06/03/19 03:14 06/03/19 03:14 06/03/19 06/03/19 03:14 03:14 WBC 10.6 H RBC 4.52 Hgb 13.9 Hct 39.5 MCV 87 MCH 30.8 MCHC 35.2 RDW 12.4 Plt Count 284 Seg Neutrophils % 79.1 H Sodium 135.3 L Potassium 4.5 Chloride 100 Carbon Dioxide 23 Anion Gap 12 BUN 17 Creatinine 0.64 Est GFR ( Amer) > 60 Glucose 203 H Calcium 9.2 Total Bilirubin 1.5 H AST 24 Alkaline Phosphatase 74 Total Protein 7.7 Albumin 4.2 06/03/19 06/03/19 03:14 03:14 Troponin I < 0.012 NT-Pro-B Natriuret Pep 100 Impressions: Chest X-Ray 06/02/19 23:05 IMPRESSION: Small left pleural effusion with associated left basilar opacity. Consider atelectasis or pneumonia to include aspiration. Overall, this appears unchanged from the previous study dated 05/31/2019. copyright 2011 [employer]- All Rights Reserved Chest/Abdomen CTA 06/03/19 03:25 IMPRESSION: 1. No central pulmonary embolus identified. Suboptimal evaluation of the segmental and subsegmental pulmonary arterial branches due to contrast bolus timing. 2. Lingular consolidation compatible with pneumonia. Focal area of hypodensity anteriorly measuring 3.5 cm in greatest axial dimension may represent an area of necrotizing pneumonia versus early abscess formation. 3. Small left pleural effusion. 4. Linear opacity in the left lower lobe may represent atelectasis or extension of lingular pneumonia. 5. Hepatic steatosis. 6. Coronary artery atherosclerosis. This exam was performed according to our departmental dose-optimization program, which includes automated exposure control, adjustment of the mA and/or kV according to patient size and/or use of iterative reconstruction technique. Assessment and Plan - Diagnosis (1) Necrotizing pneumonia Is this a current diagnosis for this admission?: Yes Plan: Chest CT imaging result reviewed indicating likely necrotizing pneumonia involvi ng the left lung. Likely bacterial. Discussed case with compliance professional Dr. Lim who recommends triple antibiotic therapy including clindamycin as well as Mucomyst I will start patient on vancomycin cefepime and clindamycin Blood culture sent. Blood cultures from prior ED visit is negative at 48 hours. Obtain sputum cultures if possible Mucomyst with nebs (2) Daytime somnolence Is this a current diagnosis for this admission?: Yes Plan: Nocturnal CPAP for possible suspected sleep apnea. Sleep study recommended on discharge. (3) Diabetes mellitus type 2 in obese Is this a current diagnosis for this admission?: Yes Plan: Hold metformin given contrast study. Continue glipizide. Sliding scale insulin. (4) Hypertension Qualifiers: Hypertension type: essential hypertension Qualified Code(s): I10 - Essential (primary) hypertension Is this a current diagnosis for this admission?: Yes Plan: Resume home antihypertensives - Time Time Spent with patient: 35 or more minutes
[2019-06-03] MEDS: CLINDAMYCIN 600 MG/D5W RTU 600 MG/50 ML RTUPB IV SCH ×2 (14:31→21:25)
[2019-06-03] MEDS: VANCOMYCIN HCL 1,250 MG in DEXTROSE 5%-WATER 250 ML IV SCH ×2 (16:28→22:32)
[2019-06-03] MEDS: GLIPIZIDE 5 MG TABLET PO SCH (16:52)
[2019-06-03] MEDS: INSULIN LISPRO 100 UNIT/ML 3 ML VIAL SUBCUT SCH ×2 (16:53→21:20)
[2019-06-03] MEDS: KETOROLAC TROMETHAMINE INJ/PF 30 MG/1 ML SDV IV PRN (16:58)
[2019-06-03] MEDS: GUAIFENESIN SYRP 200 MG/10 ML UDC PO PRN (16:58)
[2019-06-03] MEDS ORDERED: METHOCARBAMOL 500 MG TABLET PO PRN (17:39)
[2019-06-03] MEDS: CEFEPIME HCL 2 GM in DEXTROSE 5%-WATER 50 ML IV SCH (18:36)
[2019-06-03] MEDS: ALBUTEROL SULFATE 0.083% NEB 2.5 MG/3 ML AMPUL NEB PRN (20:49)
[2019-06-03] MEDS: ACETYLCYSTEINE 10% NEB 400 MG/4 ML VIAL NEB SCH (20:49)
[2019-06-03] MEDS: ATORVASTATIN CALCIUM 20 MG TABLET PO SCH (21:27)
[2019-06-03] MEDS ORDERED: ATORVASTATIN CALCIUM 40 MG TABLET PO SCH (22:00)
[2019-06-03] MEDS ORDERED: CEFEPIME 2 GM/D5W RTU 50 ML IV SCH (22:00)
[2019-06-04] MEDS: KETOROLAC TROMETHAMINE INJ/PF 30 MG/1 ML SDV IV PRN ×3 (03:31→17:47)
[2019-06-04] MEDS: GUAIFENESIN SYRP 200 MG/10 ML UDC PO PRN (03:36)
[2019-06-04 05:18] LABS: ABSOLUTE LYMPHOCYTES (AUTO) 1.3 10^3/uL (0.5-4.7); ABSOLUTE MONOCYTES (AUTO) 0.9 10^3/uL (0.1-1.4); ABSOLUTE NEUT (AUTO) 7.8 10^3/uL (1.7-8.2); BASOPHILS % (AUTO) 0.4 % (0-2); EOSINOPHILS % (AUTO) 0.5 % (0-6); HEMATOCRIT 36.2 % (37.9-51.0); HEMOGLOBIN 12.8 g/dL (13.5-17.0); MEAN CORPUSCULAR HEMOGLOBIN 30.8 pg (27.0-33.4); MEAN CORPUSCULAR HGB CONC 35.4 g/dL (32.0-36.0); MEAN CORPUSCULAR VOLUME 87 fl (80-97); MONOCYTES % (AUTO) 8.8 % (3-13); PLATELET COUNT 277 10^3/uL (150-450); RED BLOOD COUNT 4.15 10^6/uL (4.35-5.55); RED CELL DISTRIBUTION WIDTH 12.6 % (11.5-14.0); SEGMENTED NEUTROPHILS % (AUTO) 77.3 % (42-78); TOTAL CELLS COUNTED % (AUTO) 100 %; WHITE BLOOD COUNT 10.1 10^3/uL (4.0-10.5)
[2019-06-04 05:40] LABS: ANION GAP 12 (5-19); BLOOD UREA NITROGEN 18 mg/dL (7-20); CARBON DIOXIDE 25 mmol/L (22-30); CHLORIDE 99 mmol/L (98-107); GLUCOSE 187 mg/dL (75-110); POTASSIUM 4.2 mmol/L (3.6-5.0)
[2019-06-04] MEDS: CLINDAMYCIN 600 MG/D5W RTU 600 MG/50 ML RTUPB IV SCH ×3 (05:52→23:02)
[2019-06-04] MEDS: CEFEPIME HCL 2 GM in DEXTROSE 5%-WATER 50 ML IV SCH ×2 (06:33→17:43)
[2019-06-04] MEDS: VANCOMYCIN HCL 1,250 MG in DEXTROSE 5%-WATER 250 ML IV SCH ×2 (06:33→15:01)
[2019-06-04] MEDS: GLIPIZIDE 5 MG TABLET PO SCH ×2 (07:25→16:37)
[2019-06-04] MEDS: INSULIN LISPRO 100 UNIT/ML 3 ML VIAL SUBCUT SCH ×4 (07:25→22:32)
[2019-06-04] MEDS: ACETYLCYSTEINE 10% NEB 400 MG/4 ML VIAL NEB SCH ×2 (09:08→21:16)
[2019-06-04] MEDS: ALBUTEROL SULFATE 0.083% NEB 2.5 MG/3 ML AMPUL NEB PRN ×2 (09:08→21:16)
[2019-06-04] MEDS: ENOXAPARIN SODIUM INJ 40 MG/0.4 ML DISP.SYRIN SUBCUT SCH (09:56)
[2019-06-04] MEDS: ASPIRIN 81 MG TABLET, ENT COATED PO SCH (09:56)
[2019-06-04] MEDS ORDERED: LOSARTAN POTASSIUM 25 MG TABLET PO SCH (10:00)
--- NOTE | 2019-06-04 11:24 | PDOC PROGRESS REPORT ---
Subjective Progress Note for:: 06/04/19 Subjective:: Patient does not feel much better. It has been less than 24 hours. His biggest complaint is pleuritic pain left mid axillary line. He has been afebrile. His white blood cell count is normal. Reason For Visit: PNEUMONIA Physical Exam Vital Signs: Temp Pulse Resp BP Pulse Ox 98.5 F 83 18 148/96 H 92 06/04/19 07:12 06/04/19 09:08 06/04/19 09:08 06/04/19 07:12 06/04/19 09:08 Pulse Oximeter Continuous Start: 06/03/19 12 :19 Freq: RTQ4 Status: Active Protocol: Document 06/04/19 09:08 [facility] (Rec: 06/04/19 09:33 [facility] [id number]) Pulse Oximetry Assessment Oxygen Saturation (92-100) 92 Oxygen Delivery Method Room Air Fraction of Inspired Oxygen (FIO2) 21 Equipment Usage Equipment in Use Continuous SpO2 Machine # 5 Intake & Output 06/03/19 06/04/19 06/05/19 06:59 06:59 06:59 Intake Total 2547 350 Balance 2547 350 Weight 104.1 kg 102.7 kg General appearance: PRESENT: cooperative, mild distress, well-developed Head exam: PRESENT: atraumatic, normocephalic Eye exam: PRESENT: conjunctiva pink. ABSENT: scleral icterus Ear exam: PRESENT: normal external ear exam. ABSENT: bleeding, drainage Mouth exam: PRESENT: moist, tongue midline Respiratory exam: PRESENT: clear to auscultation jacobo - Difficult exam due to limited inspiratory phase secondary to pleuritic chest pain., symmetrical, unlabored. ABSENT: rales, rhonchi, tachypnea, wheezes Cardiovascular exam: PRESENT: RRR, +S1, +S2, systolic murmur - Possible faint 1/6 GI/Abdominal exam: PRESENT: normal bowel sounds, soft. ABSENT: distended, guarding, tenderness Rectal exam: PRESENT: deferred Gentrourinary exam: ABSENT: indwelling catheter Musculoskeletal exam: PRESENT: normal inspection. ABSENT: deformity Neurological exam: PRESENT: alert, awake, oriented to person, oriented to place, oriented to time, oriented to situation, CN II-XII grossly intact. ABSENT: altered, motor sensory deficit Psychiatric exam: PRESENT: appropriate affect. ABSENT: agitated, anxious Focused psych exam: ABSENT: delusional, restlessness Skin exam: PRESENT: dry, normal color, warm. ABSENT: rash Results Laboratory Results: 06/04/19 04:19 06/04/19 04:19 06/04/19 06/04/19 04:19 04:19 WBC 10.1 RBC 4.15 L Hgb 12.8 L Hct 36.2 L MCV 87 MCH 30.8 MCHC 35.4 RDW 12.6 Plt Count 277 Seg Neutrophils % 77.3 Sodium 135.6 L Potassium 4.2 Chloride 99 Carbon Dioxide 25 Anion Gap 12 BUN 18 Creatinine 0.69 Est GFR ( Amer) > 60 Glucose 187 H Calcium 9.0 06/03/19 06/03/19 03:14 03:14 Troponin I < 0.012 NT-Pro-B Natriuret Pep 100 Impressions: Chest X-Ray 06/02/19 23:05 IMPRESSION: Small left pleural effusion with associated left basilar opacity. Consider atelectasis or pneumonia to include aspiration. Overall, this appears unchanged from the previous study dated 05/31/2019. copyright 2011 [employer]- All Rights Reserved Chest/Abdomen CTA 06/03/19 03:25 IMPRESSION: 1. No central pulmonary embolus identified. Suboptimal evaluation of the segmental and subsegmental pulmonary arterial branches due to contrast bolus timing. 2. Lingular consolidation compatible with pneumonia. Focal area of hypodensity anteriorly measuring 3.5 cm in greatest axial dimension may represent an area of necrotizing pneumonia versus early abscess formation. 3. Small left pleural effusion. 4. Linear opacity in the left lower lobe may represent atelectasis or extension of lingular pneumonia. 5. Hepatic steatosis. 6. Coronary artery atherosclerosis. This exam was performed according to our departmental dose-optimization program, which includes automated exposure control, adjustment of the mA and/or kV according to patient size and/or use of iterative reconstruction technique. Assessment and Plan - Diagnosis (1) Necrotizing pneumonia Is this a current diagnosis for this admission?: Yes Plan: Chest CT imaging result reviewed indicating likely necrotizing pneumonia involving the left lung. Likely bacterial. Discussed case with tso Dr. Lim who recommends triple antibiotic therapy including clindamycin as well as Mucomyst I will start patient on vancomycin cefepime and clindamycin Blood culture sent. Blood cultures from prior ED visit is negative at 48 hours. Obtain sputum cultures if possible Mucomyst with nebs 06/04/2019 Starting to feel better with antibiotics. Currently on triple antibiotic therapy. Taper oxygen back to room air. (2) Daytime somnolence Is this a current diagnosis for this admission?: Yes Plan: Nocturnal CPAP for possible suspected sleep apnea. Sleep study recommended on discharge. 06/04/2019 Suggest sleep study as an outpatient. (3) Diabetes mellitus type 2 in obese Is this a current diagnosis for this admission?: Yes Plan: Hold metformin given contrast study. Continue glipizide. Sliding scale insulin. 06/04/2019 Can resume metformin at home. Continue glipizide. (4) Hypertension Qualifiers: Hypertension type: essential hypertension Qualified Code(s): I10 - Essential (primary) hypertension Is this a current diagnosis for this admission?: Yes Plan: Resume home antihypertensives 06/04/2019 Continue home antihypertensive medication - Time Time Spent with patient: 15-24 minutes Medications reviewed and adjusted accordingly: Yes Anticipated discharge: Home Within: within 48 hours
[2019-06-04] MEDS: VANCOMYCIN HCL 1,500 MG in DEXTROSE 5%-WATER 250 ML IV SCH ×2 (15:37→23:02)
[2019-06-04] MEDS: GUAIFENESIN 600 MG TABLET.SA PO SCH (22:58)
[2019-06-04] MEDS: ATORVASTATIN CALCIUM 20 MG TABLET PO SCH (22:58)
[2019-06-05] MEDS: KETOROLAC TROMETHAMINE INJ/PF 30 MG/1 ML SDV IV PRN (00:22)
[2019-06-05] MEDS ORDERED: CEFEPIME INJ 2 GM VIAL IV PRN (05:43)
[2019-06-05] MEDS ORDERED: CEFEPIME 2 GM/D5W RTU 2 GM/50 ML RTUPB IV ONE ×2 (05:45→06:07)
[2019-06-05] MEDS: CLINDAMYCIN 600 MG/D5W RTU 600 MG/50 ML RTUPB IV SCH (05:52)
[2019-06-05] MEDS: VANCOMYCIN HCL 1,500 MG in DEXTROSE 5%-WATER 250 ML IV SCH ×2 (06:01→08:09)
[2019-06-05] MEDS: INSULIN LISPRO 100 UNIT/ML 3 ML VIAL SUBCUT SCH ×2 (07:23→12:22)
[2019-06-05] MEDS: GLIPIZIDE 5 MG TABLET PO SCH (07:23)
[2019-06-05] MEDS: CEFEPIME HCL 2 GM in DEXTROSE 5%-WATER 50 ML IV SCH (07:27)
[2019-06-05] MEDS ORDERED: HYDROCHLOROTHIAZIDE 12.5 MG TABLET PO SCH (08:00)
[2019-06-05] MEDS: ALBUTEROL SULFATE 0.083% NEB 2.5 MG/3 ML AMPUL NEB PRN (08:37)
[2019-06-05] MEDS: ACETYLCYSTEINE 10% NEB 400 MG/4 ML VIAL NEB SCH (08:37)
[2019-06-05] MEDS: GUAIFENESIN 600 MG TABLET.SA PO SCH (09:52)
[2019-06-05] MEDS: ENOXAPARIN SODIUM INJ 40 MG/0.4 ML DISP.SYRIN SUBCUT SCH (09:52)
[2019-06-05] MEDS: ASPIRIN 81 MG TABLET, ENT COATED PO SCH (09:52)
[2019-06-05] MEDS ORDERED: LOSARTAN POTASSIUM 25 MG TABLET PO SCH (10:00)
[2019-06-05] MEDS ORDERED: LOSARTAN POTASSIUM 50 MG TABLET PO SCH (10:00)
--- NOTE | 2019-06-05 13:01 | PDOC DISCHARGE SUMMARY ---
Impression - Admit/DC Date/PCP Admission Date/Primary Care Provider: 06/03/19 12:15 [facility] Discharge Date: 06/05/19 - Discharge Diagnosis (1) Necrotizing pneumonia Is this a current diagnosis for this admission?: Yes (2) Daytime somnolence Is this a current diagnosis for this admission?: Yes (3) Diabetes mellitus type 2 in obese Is this a current diagnosis for this admission?: Yes (4) Hypertension Is this a current diagnosis for this admission?: Yes - Additional Information Resuscitation Status: Full Code Discharge Diet: Cardiac, Diabetic Discharge Activity: Activity As Tolerated, Slowly Increase Activity Referrals: [facility] [Primary Care Provider] - Follow up as needed Prescriptions: Clindamycin HCl [Cleocin 150 mg Capsule] 150 mg PO Q6 #40 capsule Home Medications: Aspirin [Adult Low Dose Aspirin EC] 81 mg PO DAILY 06/03/19 Atorvastatin Calcium [Lipitor 40 mg Tablet] 20 mg PO QHS 06/03/19 Glipizide [Glucotrol] 5 mg PO BID 06/03/19 Ibuprofen [Motrin 600 mg Tablet] 600 mg PO Q12HP PRN 06/03/19 Losartan Potassium [Cozaar 25 mg Tablet] 25 mg PO DAILY 06/03/19 Metformin HCl [Metformin HCl ER] 1,000 mg PO BID 06/03/19 Methocarbamol [Robaxin 500 mg Tablet] 500 mg PO BIDP PRN 06/03/19 Sumatriptan Succinate [Imitrex 25 mg Tablet] 25 mg PO .ONSETOFHEADACHE 06/03/19 Clindamycin HCl [Cleocin 150 mg Capsule] 150 mg PO Q6 #40 capsule 06/05/19 Glipizide [Glucotrol 5 mg Tablet] 5 mg PO BIDACBS tablet 06/05/19 Guaifenesin [Mucinex Sr 600 mg Tablet.sa] 600 mg PO Q12 tablet.sa 06/05/19 History of Present Illiness History of Present Illness: MALACHI CABELLO is a 53 year old male with a history of type 2 diabetes mellitus, hypertension, arthritis of both shoulders, who presents to the hospital complaining of progressive shortness of breath and cough. Patient symptoms began about a week ago and began with chills, nonproductive cough. He began to develop left-sided pleuritic chest pain. He came to the ER and was given Levaquin on Sunday. He states that despite taking the antibiotics on Sunday and Sunday he has not noted any improvement in his cough and right progressive nature of the chest pain and shortness of breath and decided to come back to the ER. Patient denies any travels outside of [place] in the past 1 month. Also has not traveled outside the country anytime recently. Currently denies fever or chills at this time. Denies pain in any large gatherings of people. Only sick contact is somebody from work. Chest pain is only upon deep inhalation. Hospital Course Hospital Course: Unremarkable hospital course. With antibiotic therapy the patient's white blood cell count improved. He was tapered from oxygen therapy. He is stable for discharge and completion of therapy with oral antibiotics. Physical Exam Vital Signs: Temp Pulse Resp BP Pulse Ox 98.4 F 81 12 144/95 H 96 06/05/19 08:16 06/05/19 08:16 06/05/19 08:16 06/05/19 08:16 06/05/19 08:16 Pulse Oximeter Continuous Start: 06/03/19 12:19 Freq: RTQ4 Status: Active Protocol: Document 06/05/19 04:04 [facility] (Rec: 06/05/19 04:04 [facility] [id number]) Pulse Oximetry Assessment Oxygen Saturation (92-100) 97 Oxygen Delivery Method CPAP Fraction of Inspired Oxygen (FIO2) 21 Equipment Usage Equipment Standby Continuous Pulse Oximeter 24 Hour Charge Charge Now Continuous SpO2 Machine # 5 Intake & Output 06/04/19 06/05/19 06/06/19 06:59 06:59 06:59 Intake Total 8689 5617 50 Balance 7044 2270 50 Weight 102.7 kg 101.4 kg General appearance: PRESENT: no acute distress, cooperative, well-developed Respiratory exam: PRESENT: clear to auscultation jacobo, symmetrical, unlabored. ABSENT: prolonged expiratory phas, rales, rhonchi, tachypnea, wheezes Cardiovascular exam: PRESENT: RRR, +S1, +S2 GI/Abdominal exam: PRESENT: normal bowel sounds, soft. ABSENT: distended, guarding, tenderness Rectal exam: PRESENT: deferred Gentrourinary exam: ABSENT: indwelling catheter Extremities exam: ABSENT: joint swelling, pedal edema Musculoskeletal exam: PRESENT: ambulatory, full ROM, normal inspection Neurological exam: PRESENT: alert, awake, oriented to person, oriented to place, oriented to time, oriented to situation, CN II-XII grossly intact. ABSENT: motor sensory deficit Psychiatric exam: PRESENT: appropriate affect, normal mood. ABSENT: agitated, anxious Focused psych exam: ABSENT: delusional, restlessness Skin exam: PRESENT: dry, normal color, warm. ABSENT: rash Results Laboratory Results: WBC 10.1 10^3/uL (4.0-10.5) 06/04/19 04:19 RBC 4.15 10^6/uL (4.35-5.55) L 06/04/19 04:19 Hgb 12.8 g/dL (13.5-17.0) L 06/04/19 04:19 Hct 36.2 % (37.9-51.0) L 06/04/19 04:19 MCV 87 fl (80-97) 06/04/19 04:19 MCH 30.8 pg (27.0-33.4) 06/04/19 04:19 MCHC 35.4 g/dL (32.0-36.0) 06/04/19 04:19 RDW 12.6 % (11.5-14.0) 06/04/19 04:19 Plt Count 277 10^3/uL (150-450) 06/04/19 04:19 Lymph % (Auto) 13.0 % (13-45) 06/04/19 04:19 [place] % (Auto) 8.8 % (3-13) 06/04/19 04:19 Eos % (Auto) 0.5 % (0-6) 06/04/19 04:19 Baso % (Auto) 0.4 % (0-2) 06/04/19 04:19 Absolute Neuts (auto) 7.8 10^3/uL (1.7-8.2) 06/04/19 04:19 Absolute Lymphs (auto) 1.3 10^3/uL (0.5-4.7) 06/04/19 04:19 Absolute Monos (auto) 0.9 10^3/uL (0.1-1.4) 06/04/19 04:19 Absolute Eos (auto) 0.0 10^3/uL (0.0-0.6) 06/04/19 04:19 Absolute Basos (auto) 0.0 10^3/uL (0.0-0.2) 06/04/19 04:19 Seg Neutrophils % 77.3 % (42-78) 06/04/19 04:19 Sodium 135.6 mmol/L (137-145) L 06/04/19 04:19 Potassium 4.2 mmol/L (3.6-5.0) 06/04/19 04:19 Chloride 99 mmol/L (98-107) 06/04/19 04:19 Carbon Dioxide 25 mmol/L (22-30) 06/04/19 04:19 Anion Gap 12 (5-19) 06/04/19 04:19 BUN 18 mg/dL (7-20) 06/04/19 04:19 Creatinine 0.69 mg/dL (0.52-1.25) 06/04/19 04:19 Est GFR ( Amer) > 60 (>60) 06/04/19 04:19 Est GFR (MDRD) Non-Af > 60 (>60) 06/04/19 04:19 Glucose 187 mg/dL (75-110) H 06/04/19 04:19 POC Glucose 177 mg/dL (70-110) H 06/05/19 11:28 Calcium 9.0 mg/dL (8.4-10.2) 06/04/19 04:19 Total Bilirubin 1.5 mg/dL (0.2-1.3) H 06/03/19 03:14 Direct Bilirubin 0.0 mg/dL (0.0-0.4) 06/03/19 03:14 Neonat Total Bilirubin Not Reportable 06/03/19 03:14 Neonat Direct Bilirubin Not Reportable 06/03/19 03:14 Neonat Indirect Bili Not Reportable 06/03/19 03:14 AST 24 U/L (17-59) 06/03/19 03:14 ALT 28 U/L (<50) 06/03/19 03:14 Alkaline Phosphatase 74 U/L (38-126) 06/03/19 03:14 Troponin I < 0.012 ng/mL 06/03/19 03:14 NT-Pro-B Natriuret Pep 100 pg/mL (<125) 06/03/19 03:14 Total Protein 7.7 g/dL (6.3-8.2) 06/03/19 03:14 Albumin 4.2 g/dL (3.5-5.0) 06/03/19 03:14 Time Trough Drawn 1338 06/04/19 13:38 Vancomycin Trough 9.0 ug/mL (5.0-20.0) 06/04/19 13:38 Influenza A (Rapid) NEGATIVE (NEGATIVE) 06/03/19 03:50 Influenza B (Rapid) NEGATIVE (NEGATIVE) 06/03/19 03:50 06/03/19 06/03/19 03:14 03:14 Troponin I < 0.012 NT-Pro-B Natriuret Pep 100 Impressions: Chest X-Ray 06/02/19 23:05 IMPRESSION: Small left pleural effusion with associated left basilar opacity. Consider atelectasis or pneumonia to include aspiration. Overall, this appears unchanged from the previous study dated 05/31/2019. copyright 2011 [employer]- All Rights Reserved Chest/Abdomen CTA 06/03/19 03:25 IMPRESSION: 1. No central pulmonary embolus identified. Suboptimal evaluation of the segmental and subsegmental pulmonary arterial branches due to contrast bolus timing. 2. Lingular consolidation compatible with pneumonia. Focal area of hypodensity anteriorly measuring 3.5 cm in greatest axial dimension may represent an area of necrotizing pneumonia versus early abscess formation. 3. Small left pleural effusion. 4. Linear opacity in the left lower lobe may represent atelectasis or extension of lingular pneumonia. 5. Hepatic steatosis. 6. Coronary artery atherosclerosis. This exam was performed according to our departmental dose-optimization program, which includes automated exposure control, adjustment of the mA and/or kV according to patient size and/or use of iterative reconstruction technique. Plan Health Concerns: The daytime somnolence should still be investigated with a sleep study Plan of Treatment: Complete antibiotics as ordered. Gradually increase activity level. Return to work on June 08. I instructed the patient to reestablish with Dr. Montoya. His blood pressure was high and I told him that he will likely need an increase in his blood pressure medicine. Goals: Complete resolution of pneumonia and further investigation of daytime somnolence Time Spent: Greater than 30 Minutes Stroke Is this a Stroke Patient?: No Acute Heart Failure - Is this a Heart Failure Patient?: No
[2019-06-05 14:27] VITALS: BP 145/88
== END 2019-06-05 13:48 | disposition home or self-care (01) | DRG 178 ==
LOC: ER 21:46 → EH 06-03 12:15 → 4S 06-03 13:53
PROVIDERS: ADMIT Internal Medicine; ATTEND Hospitalist
PROC: 5A09357 Assistance with Respiratory Ventilation, Less than 24 Consecutive Hours, Continuous Positive Airway Pressure (ICD-10-PCS; principal; 2019-06-03)
DX: J85.0 Gangrene and necrosis of lung (principal); J90 Pleural effusion, not elsewhere classified; E11.9 Type 2 diabetes mellitus without complications; R40.0 Somnolence; E66.9 Obesity, unspecified; I10 Essential (primary) hypertension; M19.012 Primary osteoarthritis, left shoulder; M19.011 Primary osteoarthritis, right shoulder; G43.909 Migraine, unspecified, not intractable, without status migrainosus; E78.5 Hyperlipidemia, unspecified; R00.0 Tachycardia, unspecified; Z79.84 Long term (current) use of oral hypoglycemic drugs; Z79.82 Long term (current) use of aspirin; Z79.899 Other long term (current) drug therapy; I25.2 Old myocardial infarction; Z83.3 Family history of diabetes mellitus; Z82.49 Family history of ischemic heart disease and other diseases of the circulatory system; Z88.0 Allergy status to penicillin
CPT/HCPCS: 36415; 71046; 71275; 80048; 80053; 80202; 82962; 83880; 84484; 85025; 87040; 87804; 94640; 94660; 94667; 94762; 94799; 96361; 96374; 99285; J0692; J1650; J1815; J1885; J3370; J3490; J7030; J7060